=== PATIENT | male | born 1960 | race Caucasian/White ===

== ENCOUNTER → 2018-10-30 | Outpatient (CLI) | payer BC, OTHER ==
[~2018-10-30] MED LIST: AMLO10TA8 PO; DOCU-109 PO; DOXA4TAB3 PO; HYDR-2761 PO; HYDR-3164 PO; INDA1.25 PO; LOSA100T14 PO; MELO15TA23 PO; METF500T16 PO; METH-38 PO; POTA20TA82 PO
[2018-10-30 10:13] LABS: BASO # 0.1 x10^3/uL (0.0-0.2); BASO % 1 % (0-3); EOS # 0.4 x10^3/uL (0.0-0.7); EOS % 5 % (0-3); HEMATOCRIT 41.4 % (39.0-53.0); HEMOGLOBIN 14.8 g/dL (13.0-17.5); LYMPH # 2.1 x10^3/uL (1.0-4.8); LYMPH % 26 % (24-48); MEAN CORPUSCULAR HEMOGLOBIN 31 pg (25-35); MEAN CORPUSCULAR HGB CONC 36 g/dL (31-37); MEAN CORPUSCULAR VOLUME 87 fL (79-100); MONO # 0.8 x10^3/uL (0.0-1.1); MONO % 11 % (0-9); NEUT # 4.5 x10^3uL (1.8-7.7); NEUT % 57 % (31-73); PLATELET COUNT 245 x10^3/uL (140-400); RED BLOOD COUNT 4.76 x10^6/uL (4.30-5.70); RED CELL DISTRIBUTION WIDTH 12.9 % (11.5-14.5); WHITE BLOOD COUNT 7.9 x10^3/uL (4.0-11.0)
[2018-10-30 10:37] LABS: ALBUMIN 3.5 g/dL (3.4-5.0); ALBUMIN/GLOBULIN RATIO 0.9 (1.0-1.7); CALCIUM 9.3 mg/dL (8.5-10.1); CREATININE 1.1 mg/dL (0.7-1.3); GFR 69.2; TOTAL BILIRUBIN 0.7 mg/dL (0.2-1.0); TOTAL PROTEIN 7.3 g/dL (6.4-8.2)
[2018-10-30 10:39] LABS: POTASSIUM 2.7 mmol/L (3.5-5.1)
--- NOTE | 2018-10-30 10:46 | NUR ---
DR MCPHERSON'S RN NOTIFIED OF PATIENT'S K 2.7. STATES SHE WILL NOTIFY DR ARIAS HIS PCP, AND TO RECHECK HIS K MORNING OF SURGERY. ORDER ADDED TO WRITTEN ORDER SHEET.
--- NOTE | 2018-10-31 13:13 | NUR ---
PATIENT CALLED 10/30/2018 AT AROUND 1500 AND SAID THAT HE'S PCP PRESCRIBED POTASSIUM PO.
== END | disposition home or self-care (01) ==
LOC: SURGPAT 09:01
PROVIDERS: ATTEND Neurological Surgery
DX: Z01.818 Encounter for other preprocedural examination (principal); M51.16 Intervertebral disc disorders with radiculopathy, lumbar region
CPT/HCPCS: 36415; 80053; 85025; 87641

== ENCOUNTER 2018-11-03 08:04 | Day surgery (SDC) | payer BC ==
--- NOTE | 2018-10-31 13:18 | PREOP HP ---
DATE OF SERVICE: 11/03/2018. DATE OF SURGERY: 11/03/2018. HISTORY OF PRESENT ILLNESS: The patient is a pleasant 58-year-old who is having difficulty with low back pain and bilateral hip and leg pain, right greater than left. The problem began in early August when he fell off of his truck while cleaning the window. He developed back pain and severe right anterior thigh pain and burning. He had redness around his right knee. The burning has improved to a degree, but he continues to have significant difficulties. He feels as though his right leg is weak. He has fallen because of the right leg weakness. If he sits too long, his pain is severe. He said his pain currently is a 5/10. He has been taking Mobic, Flexeril and [place]. He has been off work for the last month, working as a self-employed yard truck driver. He said he found that he was unable to work because the pain in his back and right leg is so severe. There is no problem in the left leg. He has never had a similar problem. PAST MEDICAL HISTORY: Neck injury, hypertension, trauma, retinal tear and diabetes. PAST SURGICAL HISTORY: Cervical discectomy in 1995, lumbar decompression with Dr. Dukes in 2002 and retinal tear repair in 2013. FAMILY HISTORY: Heart problems and disease. SOCIAL HISTORY: He is employed as a yard truck driver, . He exercises daily. Denies substance abuse. Denies tobacco use. Drinks alcohol 1-2 times per year. Drinks soda 3-4 a day. ALLERGIES: No known drug allergies. CURRENT MEDICATIONS: Metformin, amlodipine, losartan, indapamide, doxazosin, [place], meloxicam, Isabel, vitamin C, Urinozinc, saw palmetto, fish oil, zinc, D3 adult DHEA and vitamin E. REVIEW OF SYSTEMS: A 12-point review of systems was obtained and is noncontributory, except for that mentioned above. PHYSICAL EXAMINATION: NEUROSURGERY EXAMINATION: GENERAL APPEARANCE: Alert, pleasant, in no acute distress. HEAD: Normocephalic and atraumatic. SKIN: Warm and dry. MUSCULOSKELETAL: Lumbar paraspinal muscle bulk is normal, restricted range of motion of the lumbar spine, ayur-ya-qzjuzjxy tenderness of the lower lumbar spine with palpation. EXTREMITIES: Normal range of motion of the lower extremities bilaterally. No clubbing, cyanosis or edema. NEUROLOGIC: Alert and oriented x 3. Normal recent and remote memory. Strength 5/5 in bilateral lower extremities, except 4/5 right quadriceps strength. Sensory is intact to light touch in bilateral lower extremities, except for decreased light touch and dysesthesia to the anterior thigh, knee and proximal anterior leg. Reflexes are trace and symmetrical in the lower extremities bilaterally. Negative straight leg raising bilaterally. Forward-stooped antalgic gait favoring the right leg. IMAGING: I reviewed a lumbar MRI scan. The principal abnormality on that study is at L3-L4, where there is a very large right-sided disc extrusion which extends superiorly from the L3-L4 disc up to the L2-L3 disc. It is associated with moderately severe right-sided central canal narrowing. There is also moderate facet hypertrophy at this level, which contributes to moderately severe central canal stenosis. ASSESSMENT/ PLAN: The patient has lumbar stenosis at L3-L4 and right-sided large disc herniation extrusion which is associated with significant right-sided central canal narrowing, extending behind the body of L3. At this point, my recommendation is that he move forward with a right direct laminectomy at L3-L4 combined with removal of this large extruded disc herniation and decompression of the dura and nerve root. I spoke with him about the surgery and the risks. He understands. He would like to go ahead. We will make the arrangements. YOSEF MCPHERSON MD DR: SHARMIN/elaine JOB#: [id number] / [id number] MARYSE
[~2018-11-03] VITALS: Ht 175.3 cm; Wt 90.7 kg
[~2018-11-03 08:04] MED LIST changes: +AMLO10TA6 PO; -AMLO10TA8 PO; +BACITRACIN 50,000 UNIT in IV NORMAL SALINE 1000ML BAG 1,000 ML IRR ONE; +BUPIVAC MPF-EPI 0.5%-1:200000 30 ML VIAL. ONE; -DOCU-109 PO; +GELATIN SPONGE SIZE 100. ONE; -HYDR-3164 PO; +HYDROmorphone 2 MG/ML VIAL IV PRN; +IV RINGERS,LACTATED 1000ML 1,000 ML IV SCH; +KETOROLAC 60 MG/2 ML INJ FOR OR. ONE; +LIDOCAINE 1% PF 2 ML VIAL. ID PRN; -METH-38 PO; +MORPHINE SULFATE 4 MG/ML VIAL. IV PRN; +ONDANSETRON PF 4 MG/2 ML VIAL. IV PRN; -POTA20TA82 PO; +PROCHLORPERAZINE 10 MG/2 ML VIAL. IV PRN; +THROMBIN TOPICAL 20,000 UNIT SPRAY.SYRN KIT TP ONE; +fentaNYL PF VIAL 100 MCG/2 ML VIAL IV PRN
--- NOTE | 2018-11-03 08:59 | EKG ---
[facility] [address] [place] [address] Test Date: 2018-11-03 Test Time: 08:55:14 Pat Name: VOLODYMYR LGAUNAS Department: Room: Gender: M Network Design Architect: TV : 1960 Requested By: RENA RIGGS Order Number: [id number] Reading MD: Harlan Sandhu MD Measurements Intervals [place] Rate: 71 P: 26 RI: 208 QRS: -79 QRSD: 86 T: 2 QT: 408 QTc: 448 Interpretive Statements SINUS RHYTHM LAD RBBB CONSIDER INFERIOR INFARCT Electronically Signed On 11-04-2018 12:13:21 SOLE CONDITIONER by Harlan Sandhu MD
[2018-11-03] MEDS ORDERED: POTA20TA82 PO (09:00)
[2018-11-03] MEDS ORDERED: fentaNYL PF VIAL 100 MCG/2 ML VIAL ONE (09:42)
[2018-11-03] MEDS ORDERED: LIDOCAINE 2% PF Vial for OR 5 ML VIAL. ONE (09:42)
[2018-11-03] MEDS ORDERED: REMIFENTANIL 2 MG VIAL. IV ONE (09:42)
[2018-11-03] MEDS ORDERED: PROPOFOL 20 ML IV ONE (09:42)
[2018-11-03] MEDS ORDERED: ONDANSETRON PF 4 MG/2 ML VIAL. ONE (09:42)
[2018-11-03] MEDS ORDERED: PROPOFOL 50 ML IV ONE ×2 (09:42→11:50)
[2018-11-03] MEDS ORDERED: DEXAMETHASONE SOD PHOS 20 MG/5 ML VIAL. ONE (09:42)
[2018-11-03] MEDS ORDERED: ROCURONIUM 50 MG/5 ML VIAL. ONE (09:42)
[2018-11-03] MEDS ORDERED: MIDAZOLAM HCL/PF 2 MG/2 ML VIAL. ONE (09:43)
[2018-11-03] MEDS ORDERED: PHENYLEPHRINE 10 MG/ML VIAL. ONE (09:51)
[2018-11-03] MEDS ORDERED: GLYCOPYRROLATE 1 MG/5 ML VIAL. ONE (12:41)
[2018-11-03] MEDS ORDERED: NEOSTIGMINE METHYLSULFATE 5 MG/5 ML SYRINGE. ONE (12:41)
[2018-11-03] MEDS ORDERED: DESFLURANE 61 TO 120 MINUTES IH ONE (12:41)
[2018-11-03] MEDS ORDERED: ePHEDrine PF IN SALINE 50 MG/5 ML DISP.SYRIN IV ONE (12:51)
[2018-11-03] MEDS ORDERED: HYDR-3164 PO (13:24)
[2018-11-03] MEDS ORDERED: METH-38 PO (13:25)
[2018-11-03] MEDS ORDERED: HYDROcodone/APAP 5/325MG 1 TAB TABLET PO ONE ×2 (13:45)
--- NOTE | 2018-11-03 13:48 | OP ---
DATE OF SURGERY: 11/03/2018 PREOPERATIVE DIAGNOSES: Herniated lumbar disc, right L3-L4 with superior fragment and severe right lumbar radiculopathy. POSTOPERATIVE DIAGNOSES: Herniated lumbar disc, right L3-L4 with superior fragment and severe right lumbar radiculopathy. OPERATION PERFORMED: Right-sided lumbar laminectomy, L3-L4 with removal of a large extruded disc fragment, lumbar microdiscectomy L3-L4. The operation was done with EMG monitoring, SSEP monitoring, fluoroscopy, microscopic dissection. SURGEON: Eric Mcpherson M.D. LEADITE MAN: FEDERICO Awan, assisted with the surgery. She assisted with the exposure and with microdecompression. OPERATIVE INDICATIONS: The patient is a 58-year-old man who developed severe intractable back and right leg pain, which failed conservative measures. On imaging studies, there was a very large superiorly herniated disc from L3-L4 emanating on the right side and extending up to the L2-L3 level. I spoke with him about the risks of surgery, the technique to remove this large disc and decompression of dura and nerve roots and he understood and wished to go ahead. DESCRIPTION OF PROCEDURE: Following general endotracheal anesthesia, the patient was positioned prone on the Pal frame. The lumbar region was prepped and draped in standard fashion. LUIS MANUEL hose and AV impulse boots were applied for DVT prophylaxis and microscope was draped. Fluoroscopy was draped and brought into the field. Monitoring was established. Ancef 2 grams was given less than 1 hour prior to initiation of surgery. Using fluoroscopic guidance, an incision was made extending from superior L4 behind the body of L3. I dissected down through skin and subcutaneous tissue, placed a [place] microdisk retractor. As I reflected the paraspinal muscles laterally, I brought in the microscope and the remainder of surgery done with a microscope. Using microscopic technique, I burred down a very generous hemilaminotomy and carried this superiorly performing a complete laminectomy on the right side. I went down the disc space and after trimming away the ligamentum flavum and exposing the disc and I visualized a very large superiorly extruded disc fragment. I began to tease and remove this and followed this superiorly beneath the L3 root as it moved laterally along the pedicle, which I had fully decompressed and visualized. I removed several fragments from superiorly to pulling down and then there was a lateral fragment along the course of the nerve and I teased this back and removed this and following this the nerve moved posteriorly against the bone and I felt that I had an excellent decompression. I went inferiorly and worked to enter the disc space, but the disc space was collapsed. I did remove some of the disc. I performed a generous partial foraminotomy. Following this, I irrigated copiously with antibiotic solution. I did use bipolar cautery as well as bone wax for any bone bleeding or epidural veins and then I irrigated copiously. I removed the retractor, obtained hemostasis in the muscle and I closed the wound in layers with absorbable suture and the skin was closed with 4-0 subcuticular stitch. The operation went very well and the patient was taken to recovery room in excellent condition. I was quite pleased with the surgery. ERIC MCPHERSON MD DR: SHARMIN/elaine JOB#: [id number] / [id number] MARYSE
--- NOTE | 2018-11-03 14:01 | DISCH ---
DISCHARGE INSTRUCTIONS Condition on Discharge Condition on Discharge: Stable Activity After Discharge Activity Instructions for Disc: Activity as tolerated, Avoid exertion Other activity instructions: no driving for a week Bathing Instructions: Shower-keep dressing dry Lifting Instructions after Dis: No heavy lifting, No pulling or pushing, Do not lift >10 pounds Diet after Discharge Additional Diet Restrictions: resume home diet Wound Incision Care Wound/Incision Care: Ice to area for comfort Other wound/incision instructi: may remove dressing in 48 hours if dry then may shower, no soaking Contacting the after DC Call your doctor for: Concerns you may have Follow-Up Follow up with: Dr. Mcpherson's nurse in 2 weeks [phone] YOSEF MCPHERSON MD Nov 03, 2018 14:01
[2018-11-03] MEDS ORDERED: DOCU-109 PO (14:03)
[2018-11-03 14:29] VITALS: BP 155/82
--- NOTE | 2018-11-03 18:18 | OP ---
duplicate YOSEF Carla MCPHERSON MD DR: Marshal JOB#: [id number] / [id number] MARYSE
--- NOTE | 2018-11-04 17:09 | PATHOLOGY ---
[facility] Accession Number: [id number] . 01 Material submitted: . LUMBAR DISC AND DECOMPRESSION . 01 Clinical history: . Lumbar herniated disc and radiculopathy . 02 Diagnosis: Segments of fibrocartilaginous tissue and bone, lumbar disc and decompression: - Degenerative changes of fibrocartilaginous tissue. (JPM:paul; 11/04/2018) QMS/11/04/2018 . 02 Comment: There is no evidence of an acute inflammatory process or malignancy. . 02 Electronically signed: . Marcelino Navarro MD, Pathologist NPI- [id number] . 01 Gross description: . Received in formalin labeled "Khoa, Calvin, lumbar disc in decompression," are several pieces of glistening, fibrous tissue measuring 3.9 x 2.3 x 0.8 cm in aggregate dimensions, containing small fragments of possible bone. The tissue submitted representatively in cassette A1, following decalcification. (TSD; 11/03/2018) TOB/TOB . 02 Pathologist provided ICD-10: M51.36 . 02 CPT . 735582, [id number] Specimen Comment: A courtesy copy of this report has been sent to Specimen Comment: [phone], . Specimen Comment: Report sent to and Performed at: 01 [facility] [address], [place] [id number] MD Fantasma Cruz MD Phone: [phone] Performed at: 02 [facility] [address] [place], [place] [id number] MD Marcelino Navarro MD Phone: [phone]
== END 2018-11-03 15:15 | disposition home or self-care (01) ==
LOC: SURG 08:04 → EDUNIT# 10:30 → SURG 15:15
PROVIDERS: ATTEND Neurological Surgery
DX: M51.16 Intervertebral disc disorders with radiculopathy, lumbar region (principal); I10 Essential (primary) hypertension; E11.9 Type 2 diabetes mellitus without complications; Z72.89 Other problems related to lifestyle; Z98.890 Other specified postprocedural states; Z82.49 Family history of ischemic heart disease and other diseases of the circulatory system; Z79.84 Long term (current) use of oral hypoglycemic drugs; Z79.899 Other long term (current) drug therapy; H91.90 Unspecified hearing loss, unspecified ear; M19.90 Unspecified osteoarthritis, unspecified site; N40.0 Benign prostatic hyperplasia without lower urinary tract symptoms; Z98.42 Cataract extraction status, left eye; Z98.41 Cataract extraction status, right eye; Z96.1 Presence of intraocular lens
CPT/HCPCS: 36415; 63030; 82962; 84132; 88304; 88311; 93005; 97162; 97530; G8978; G8979; G8980; J0696; J1100; J1885; J2001; J2250; J2405; J2704; J2710; J3010; J3490; J7030; J7120; 76000